=== PATIENT | male | born 2000 | race African-American/Black ===

== ENCOUNTER 2020-06-09 13:42 | Emergency (ER) | payer MEDICAID, OTHER ==
[~2020-06-09] VITALS: Ht 182.9 cm; Wt 72.6 kg
[2020-06-09] MEDS ORDERED: SODIUM CHLORIDE 0.9% 1,000 ML IV ONE ×2 (13:48)
[2020-06-09 14:17] LABS: Basophils # (auto) 0 10 ^3/uL (0-0.2); Basophils % (auto) 1.5 % (0.0-2.0); Eosinophils # (auto) 0 10 ^3/uL (0-0.8); Eosinophils % (auto) 1.5 % (0.0-7.0); Hematocrit 44.3 % (41.0-53.0); Lymphocytes # (auto) 1.5 10 ^3/uL (0.4-5.4); Lymphocytes % (auto) 50.8 % (10.0-50.0); Mean Corpuscular Hemoglobin 28.5 pg (28.0-32.0); Mean Corpuscular Hgb Conc. 33.9 g/dL (32.0-36.0); Mean Corpuscular Volume 84.2 fL (80.0-100.0); Monocytes # (auto) 0.3 10 ^3/uL (0-1.3); Monocytes % (auto) 11.4 % (0.0-12.0); Neutrophils % (auto) 34.8 % (37.0-80.0); Nucleated Red Blood Cells % 0.1 %; Platelet Count (auto) 227 10^3/uL (140-450); Red Blood Cells 5.26 10^6/uL (4.5-5.90); Red Cell Distribution Width 13.8 % (11.8-14.3); White Blood Cell 2.9 10^3/uL (4.4-10.8)
[2020-06-09 14:40] LABS: Alanine Aminotransferase 19 U/L (16-61); Albumin 4.1 g/dL (3.4-5.0); Anion Gap 6 (5-15); Aspartate Aminotransferase 20 U/L (15-37); BUN/Creatinine Ratio 13.8; Blood Alcohol < 3.0 mg/dL (0-5); Blood Urea Nitrogen 13 mg/dL (7-18); Calcium 8.8 mg/dL (8.5-10.1); Carbon Dioxide 25 mmol/L (21-32); Chloride 108 mmol/L (98-107); GFR African American 132 mL/min; GFR Non-African American 109 mL/min; Glucose 93 mg/dL (74-106); Potassium 3.8 mmol/L (3.5-5.1); Sodium 139 mmol/L (136-145)
[2020-06-09 14:42] LABS: Salicylate 2.1 mg/dL (2.8-20.0)
[2020-06-09 14:44] LABS: Acetaminophen < 2.0 ug/mL (10-30)
[2020-06-09 14:45] LABS: Alkaline Phosphatase 71 U/L (45-117); Bilirubin, Total 0.3 mg/dL (0.2-1.0); Total Protein 8.1 g/dL (6.4-8.2)
[2020-06-09 15:48] LABS: Urine WBC None Seen /hpf (0 - 3)
[2020-06-09 16:11] LABS: Urine Bacteria NONE SEEN /hpf (None Seen); Urine Blood Negative /uL (Negative); Urine Mucus FEW (None Seen); Urine Specific Gravity 1.023 (1.001-1.035)
[2020-06-09 16:20] LABS: Alcohol, Urine < 3.0 mg/dL (0-10); Amphetamine Screen, Urine NEGATIVE (NEGATIVE); Barbiturate Scree,Urine NEGATIVE (NEGATIVE); Benzodiazephine Screen, Urine NEGATIVE (NEGATIVE); Cannabinoid Screen, Urine POSITIVE (NEGATIVE); Cocaine Screen, Urine NEGATIVE (NEGATIVE); Opiate Scree,Urine NEGATIVE (NEGATIVE); Phencyclidine Screen, Urine NEGATIVE (NEGATIVE)
[2020-06-09 18:16] VITALS: BP 109/54
== END 2020-06-09 18:22 | disposition home or self-care (01) ==
LOC: ER 13:42
DX: T50.991A Poisoning by other drugs, medicaments and biological substances, accidental (unintentional), initial encounter (principal); E86.0 Dehydration; R51 Headache; R29.6 Repeated falls; Y92.89 Other specified places as the place of occurrence of the external cause
CPT/HCPCS: 36415; 71045; 80053; 80307; 80320; 80329; 81001; 84484; 85025; 96360; 96361; 99285; J7030

== ENCOUNTER 2022-12-02 14:16 | Emergency (ER) | payer MEDICAID, OTHER ==
[~2022-12-02] VITALS: Ht 185.4 cm; Wt 86.5 kg
[2022-12-02 15:38] VITALS: BP 117/69
[2022-12-02] MEDS ORDERED: IBUPROFEN 800 MG TAB PO ONE (15:45)
[2022-12-02] MEDS ORDERED: IBUP800T27 PO (15:56)
== END 2022-12-02 16:02 | disposition home or self-care (01) ==
LOC: ER 14:16
DX: S62.336A Displaced fracture of neck of fifth metacarpal bone, right hand, initial encounter for closed fracture (principal); Z79.1 Long term (current) use of non-steroidal anti-inflammatories (NSAID); W22.01XA Walked into wall, initial encounter; Y93.89 Activity, other specified; Y92.89 Other specified places as the place of occurrence of the external cause; Y99.8 Other external cause status
CPT/HCPCS: 29125; 73130

== ENCOUNTER 2025-01-02 23:09 | Emergency (ER) | payer MEDICAID, OTHER ==
[~2025-01-02] VITALS: Ht 182.9 cm; Wt 92.3 kg
[~2025-01-02 23:09] MED LIST: IBUP-1456 PO
[2025-01-03 00:32] LABS: COVID19 ANTIGEN SOFIA FIA NEGATIVE (NEGATIVE); Rapid Influenza A Negative (Negative); Rapid Influenza B Negative (Negative)
[2025-01-03 02:42] VITALS: BP 126/70; PULSE 90; RESP 18; TEMP 98.8; O2SAT 99
--- NOTE | 2025-01-03 03:24 | ED.PDOC ---
Back pain HPI HPI Comments PT PRESENTED TO ED FOR FLU-LIKE S/S: PRODUCTIVE COUGH, CONGESTION, HEADACHE, DIZZINESS AFTER TAKING TAMIFLU MEDICATION THAT WAS PRESCRIBED X1 WEEK AGO FOR POSITIVE FLU RESULTS. GCS-15, ALL VSS. DENIES WORST HEADACHE OF HIS LIFE, INJURY, DENIES NAUSEA AND VOMITING VISION CHANGES. Chief Complaint: Flu like Time Seen by MD: 23:47 Primary Care Provider: JAISON Kramer Notes: Nurses Notes, Medications, Allergies Allergies: Coded Allergies: No Known Drug Allergy (Verified Allergy, Unknown, 04/09/22) Home Meds Active Scripts Ibuprofen (Ibuprofen) 800 Mg Tab, 1 TAB PO TID, #30 TAB Prov:YOBANYSABINA HERNANDEZ 12/02/22 Information Source: Patient Mode of Arrival: Ambulatory Past Medical History PAST MEDICAL HISTORY: Denies Surgical History: Denies all surgeries Family History Family History: Reviewed,noncontributory to illness Social History Smoker: Non-Smoker Alcohol: Denies ETOH Use Drugs: Denies Drug Use Lives In: Home Constitutional: reports: fever; denies: chills, diaphoresis, fatigue, malaise, sweats, weakness, others EENTM: reports: blurred vision; denies: double vision, ear bleeding, ear discharge, ear drainage, ear pain, ear ringing, eye pain, eye redness, hearing loss, mouth pain, mouth swelling, nasal discharge, nose bleeding, nose congestion, nose pain, photophobia, tearing, throat pain, throat swelling, voice changes, others Respiratory: reports: cough; denies: hemoptysis, orthopnea, SOB at rest, shortness of breath, SOB with excertion, stridor, wheezing, others Cardiovascular: denies: chest pain, dizzy spells, diaphoresis, Dyspnea on exertion, edema, irregular heart beat, left arm pain, lightheadedness, palpitations, PND, syncope, others Gastrointestinal: denies: abdomen distended, abdominal pain, blood streaked bowels, constipated, diarrhea, dysphagia, difficulty swallowing, hematemesis, melena, nausea, poor appetite, poor fluid intake, rectal bleeding, rectal pain, vomiting, others Genitourinary: denies: burning, dysuria, flank pain, frequency, hematuria, incontinence, penile discharge, penile sore, pain, testicle pain, testicle swelling, urgency, others Neurological: reports: dizziness, headache; denies: fainting, left sided numbness, left sided weakness, numbness, paresthesia, pre-existing deficit, righ t sided numbness, right sided weakness, seizure, speech problems, tingling, tremors, weakness, others Musculoskeletal: denies: back pain, gout, joint pain, joint swelling, muscle pain, muscle stiffness, neck pain, others Integumetry: denies: bruises, change in color, change in hair/nails, dryness, laceration, lesions, lumps, rash, wounds, others Allergic/Immunocompromised: denies: Difficulty Healing, Frequent Infections, Hives, Itching, others Hematologic/Lymphatic: denies: anemia, blood clots, easy bleeding, easy bruising, swollen glands, others Endocrine: denies: excessive hunger, excessive sweating, excessive thirst, excessive urination, flushing, intolerance to cold, intolerance to heat, unexplained weight gain, unexplained weight loss, others Psychiatric: denies: anxiety, bipolar disorder, depression, hopeless, panic disorder, schizophrenia, sleepless, suicidal, others Physical Exam General Appearance: No Apparent Distress, Normal HEENT: Pharynx Normal Neck: Full Range of Motion, Non-Tender Respiratory: Lungs Clear, No Respiratory Distress, Normal Breath Sounds Cardiovascular: No Edema, No JVD, No Murmur, No Gallop, Normal Peripheral Pulses, Regular Rate/Rhythm Breast Exam: Deferred Gastrointestinal: No Organomegaly, Non Tender, No Pulsatile Mass, Normal Bowel Sounds, Soft Genitalia: Deferred Pelvic: Deferred Rectal: Deferred Extremities: Normal capillary refill, Normal inspection, Normal range of motion, Non-tender, No pedal edema Musculoskeletal : Apperance: Normal Neurologic: Alert, barrel ribs solderer II-XII nml as Tested, No Motor Deficits, Normal Affect, Normal Mood, No Sensory Deficits Cerebellar Function: Normal Reflexes: Normal Skin: Dry, Normal Color, Warm Lymphatic: No Adenopathy Was a procedure done? Was a procedure done?: No Back Pain Differential Dx Differential Diagnosis: Musculoskeletal Pain X-Ray, Labs, Meds, VS Vital Signs Date Time Temp Pulse Resp B/P (MAP) Pulse Ox O2 Delivery O2 Flow Rate FiO2 01/03/25 02:42 90 01/03/25 02:42 98.8 90 18 126/70 (88) 99 98.8 3/26/25 23:33 98.8 90 18 126/70 (88) 99 98.8 Lab Test 01/02/25 23:50 01/02/25 23:17 Range/Units Influenza Type A Antigen Negative Negative Influenza Type B Antigen Negative Negative SARS-CoV-2 Antigen (Rapid) Negative NEGATIVE POC Glucose 106 70-106 mg/dl X-Ray, Labs, Meds, VS Comment INFLUENZA SWAB AND COVID-19 SWABS ARE NEGATIVE. RELATED TO CERVICAL NECK SPASMS. RECOMMENDED A PRESCRIPTION OF MUSCLE RELAXER. ALSO RECOMMENDED T ORADOL INJECTION 60 MG OR NORCO P.O. FOR HIS PAIN. PATIENT WAS FAST ASLEEP ON THE COUCH WHEN I ARRIVED FURTHER PHYSICAL EXAM. VERY HOSTILE AND GOT UP YELLING HE IS GOING TO [place] AND HE WANTS A HEAD CT. PT WAS GIVEN VERBAL DISCHARGE INSTRUCTIONS REFUSED TO SIGN DISCHARGE INSTRUCTIONS WAS ESCORTED TO THE MAIN LOBBY BY SECURITY DUE TO AND BECOMING HOSTILE AND YELLING. NEURO EXAM WAS GROSSLY BENIGN. WAS ADVISED TO FOLLOW UP WITH HIS PCP IN 1-2 DAYS AND WE DID DISCUSS ER RETURN PRECAUTIONS HE DID INDICATE UNDERSTANDING. Time of 1ST Reevaluation: 03:20 Reevaluation 1ST: Improved Patient Education/Counseling: Diagnosis, Treatment, Prognosis, Need For Follow Up Family Education/Counseling: No Family Present Departure 1 Departure Time of Disposition: 03:20 Impression: Primary Impression: Spasm of cervical paraspinous muscle Disposition: 01 HOME / SELF CARE / HOMELESS Condition: Stable Discharged With: Self Critical Care Note Critical Care Time?: No Stability Stability form required: JESE Vega Jan 03, 2025 03:24
== END 2025-01-03 03:10 | disposition home or self-care (01) ==
LOC: ER 23:09
DX: M62.838 Other muscle spasm (principal); R51.9 Headache, unspecified; R42 Dizziness and giddiness; R05.9 Cough, unspecified; Z79.1 Long term (current) use of non-steroidal anti-inflammatories (NSAID); Z20.822 Contact with and (suspected) exposure to COVID-19
CPT/HCPCS: 36415; 82947; 82962; 87426; 87804

== ENCOUNTER 2025-09-17 18:04 | Emergency (ER) | payer MEDICAID ==
[~2025-09-17] VITALS: Ht 185.4 cm; Wt 84.0 kg
[2025-09-17 18:08] VITALS: TEMP 98
--- NOTE | 2025-09-17 19:03 | DVH ---
XY CHEST TWO VIEWS ROUTINE CLINICAL HISTORY: cough COMPARISON: XR CHEST 2 VIEWS on DOS: 12/27/24 TECHNIQUE: Frontal and lateral view of the chest was obtained FINDINGS: Lines and Tubes: None Lungs: Airspace disease is noted in the left lower lobe. Recommend follow-up study after appropriate clinical therapy to ensure resolution. Pleura: No effusion. No pneumothorax. Cardiomediastinal contours: Unremarkable Bones: No acute osseous abnormality. IMPRESSION: 1. Left lower lobe airspace disease consistent with pneumonia. 2. Recommend follow-up study after appropriate clinical therapy to verify resolution.
[2025-09-17 21:37] LABS: Hematocrit 43.7 % (41.0-53.0); Hemoglobin 14.5 g/dL (13.5-17.5); Mean Corpuscular Hemoglobin 27.7 pg (28.0-32.0); Mean Corpuscular Volume 83.5 fL (80.0-100.0); Nucleated Red Blood Cells % 0.1 %
[2025-09-17 23:41] VITALS: BP 119/74; PULSE 79; RESP 20; O2SAT 95
--- NOTE | 2025-09-17 23:43 | ED.PDOC ---
SOB-HPI HPI Comments 25-year-old male presents to ER with complaints of cough x8 days. Patient reports he has been experiencing productive cough with green phlegm and congestion x8 days. Denies use of medications for current symptoms denies any pain. Patient presents to ER ambulatory on arrival, with steady gait, in no distress with vitals stable. Denies fever, body aches, chills, night sweats, shortness of breath, fatigue, nausea/vomiting, headache, chest pain, hemoptysis or any further symptoms/complaints Chief Complaint: Cough Time Seen by MD: 18:20 Primary Care Provider: JAISON Kramer notes: Nurses Notes, Medications, Allergies Information Source: Patient Mode of Arrival: Ambulatory Past Medical History PAST MEDICAL HISTORY: Denies Surgical History: Denies all surgeries Family History Family History: Unknown Social History Smoker: Non-Smoker Alcohol: Denies ETOH Use Drugs: Denies Drug Use Lives In: Home Constitutional: denies: chills, diaphoresis, fatigue, fever, malaise, sweats, weakness, others EENTM: reports: others (As stated in HPI) Respiratory: reports: others (As stated in HPI) Cardiovascular: denies: chest pain, dizzy spells, diaphoresis, Dyspnea on exertion, edema, irregular heart beat, left arm pain, lightheadedness, palpitations, PND, syncope, others Gastrointestinal: denies: abdomen distended, abdominal pain, blood streaked bowels, constipated, diarrhea, dysphagia, difficulty swallowing, hematemesis, melena, nausea, poor appetite, poor fluid intake, rectal bleeding, rectal pain, vomiting, others Genitourinary: denies: burning, dysuria, flank pain, frequency, hematuria, incontinence, penile discharge, penile sore, pain, testicle pain, testicle swelling, urgency, others Neurological: denies: dizziness, fainting, headache, left sided numbness, left sided weakness, numbness, paresthesia, pre-existing deficit, right sided numbness, right sided weakness, seizure, speech problems, tingling, tremors, weakness, others Musculoskeletal: denies: back pain, gout, joint pain, joint swelling, muscle pain, muscle stiffness, neck pain, others Integumetry: denies: bruises, change in color, change in hair/nails, dryness, laceration, lesions, lumps, rash, wounds, others Allergic/Immunocompromised: denies: Difficulty Healing, Frequent Infections, Hives, Itching, others Hematologic/Lymphatic: denies: anemia, blood clots, easy bleeding, easy bruising, swollen glands, others Endocrine: denies: excessive hunger, excessive sweating, excessive thirst, excessive urination, flushing, intolerance to cold, intolerance to heat, unexplained weight gain, unexplained weight loss, others Psychiatric: denies: anxiety, bipolar disorder, depression, hopeless, panic disorder, schizophrenia, sleepless, suicidal, others Physical Exam General Appearance: No Apparent Distress, Normal HEENT: Normal ENT Inspection, PERRL/EOMI, Pharynx Normal, TMs Normal Neck: Full Range of Motion, Non-Tender, Normal Respiratory: Chest Non-Tender, Decreased Breath Sounds (Left lower lung ortega), Lungs Clear, No Accessory Muscle Use, No Respiratory Distress Cardiovascular: No Murmur, No Gallop, Regular Rate/Rhythm Breast Exam: Deferred Gastrointestinal: NOT DONE Genitalia: Deferred Pelvic: Deferred Rectal: Deferred Extremities: Normal capillary refill, Normal range of motion Neurologic: Alert, No Motor Deficits, Normal Affect, Normal Mood, No Sensory Deficits Cerebellar Function: Normal Reflexes: Normal Skin: Dry, Normal Color, Warm Peripheral Pulses: 2+ Radial (R), 2+ Radial (L), 2+ Brachial (R), 2+ Brachial (L) Lymphatic: No Adenopathy Was a procedure done? Was a procedure done?: No Sedation Sedation?: No Differential Dx Differential Diagnosis: Pneumothorax, Pulmonary Embolism, Respiratory Distress, Pharyngitis, URI X-Ray, Labs, Meds, VS Vital Signs Date Time Temp Pulse Resp B/P (MAP) Pulse Ox O2 Delivery O2 Flow Rate FiO2 09/17/25 23:41 95 Room Air* 0 21 09/17/25 23:41 79 20 119/74 (89) 95 09/17/25 18:08 98.0 96 18 127/83 95 98.0 Lab Test 09/17/25 21:12 Range/Units White Blood Count 10.6 4.4-10.8 10^3/uL Red Blood Count 5.23 4.5-5.90 10^6/uL Hemoglobin 14.5 13.5-17.5 g/dL Hematocrit 43.7 41.0-53.0 % Mean Corpuscular Volume 83.5 80.0-100.0 fL Mean Corpuscular Hemoglobin 27.7 L 28.0-32.0 pg Mean Corpuscular Hemoglobin Concent 33.1 32.0-36.0 g/dL Red Cell Distribution Width 13.6 11.8-14.3 % Platelet Count 376 140-450 10^3/uL Mean Platelet Volume 7.3 6.9-10.8 fL Neutrophils (%) (Auto) 67.8 37.0-80.0 % Lymphocytes (%) (Auto) 20.0 10.0-50.0 % Monocytes (%) (Auto) 11.5 0.0-12.0 % Eosinophils (%) (Auto) 0.5 0.0-7.0 % Basophils (%) (Auto) 0.2 0.0-2.0 % Neutrophils # (Auto) 7.2 1.6-8.6 10 ^3/uL Lymphocytes # (Auto) 2.1 0.4-5.4 10 ^3/uL Monocytes # (Auto) 1.2 0-1.3 10 ^3/uL Eosinophils # (Auto) 0.1 0-0.8 10 ^3/uL Basophils # (Auto) 0 0-0.2 10 ^3/uL Nucleated Red Blood Cells 0.1 % PATIENT: SILAS RODRIGUESCCT: [id number]: [id number] : 2000 LOC: ER ROOM / BED: / AGE / SEX: 25 / M ADM STATUS: REG ER SERVICE 1820 ORDERING PHYSICIAN: ELISE LION PROCEDURE(s): CXR2 - CHEST TWO VIEWS ROUTINE REASON: cough ORDER NUMBER(s): [id number], ACCESSION NUMBER(s): [id number] XY CHEST TWO VIEWS ROUTINE CLINICAL HISTORY: cough COMPARISON: XR CHEST 2 VIEWS on DOS: 12/27/24 TECHNIQUE: Frontal and lateral view of the chest was obtained FINDINGS: Lines and Tubes: None Lungs: Airspace disease is noted in the left lower lobe. Recommend follow-up study after appropriate clinical therapy to ensure resolution. Pleura: No effusion. No pneumothorax. Cardiomediastinal contours: Unremarkable Bones: No acute osseous abnormality. IMPRESSION: 1. Left lower lobe airspace disease consistent with pneumonia. 2. Recommend follow-up study after appropriate clinical therapy to verify resolution. ATED BY: LOIDA TOBAR Jr., DO DICTATED DATE/TIME: 09/17/251900 SIGNED BY: LOIDA TOBAR Jr., DO SIGNED DATE/TIME: 09/17/251900 CC: Chest x-ray reviewed CBC reviewed without any significant abnormalities Rocephin 1 g IM ordered Patient well appearing, vitals stable and in no distress during ER visit/prior to discharge Advised to drink plenty of fluids Advised on repeat chest x-ray in one week Advised to follow up with PCP in 1-2 days Patient verbalized understanding and agreeable with current plan of care Advised to return to ER immediately if symptoms worsen Images Reviewed?: Images reviewed and evaluated by me Time of 1ST Reevaluation: 23:20 Reevaluation 1ST: N/A Patient Education/Counseling: Diagnosis, Treatment, Prognosis, Need For Follow Up Family Education/Counseling: No Family Present SEPSIS Sepsis Screen Date sepsis recognized/suspect: Sep 17, 2025 Time Sepsis recognized/suspect: 1808 Recent Procedure: No On Antibiotic Therapy: No Respiratory Rate >20: No Heart Rate >90: Yes Temp<36 C (96.8 F) or >38.3 C: No SBP <90 or MAP <65 mmHG: No New Acute Mental Status Change: No Is the patient on CPAP, BIPAP,: No Physician Orders Chest Two Views Routine (09/17/25 18:20) Ceftriaxone Sodium (Rocephin) (09/17/25 23:45) Lidocaine 1% (Local Anesth.) (Xylocaine (09/17/25 23:45) Vital Signs Date Time Temp Pulse Resp B/P (MAP) Pulse Ox O2 Delivery O2 Flow Rate FiO2 09/17/25 23:41 95 Room Air* 0 21 09/17/25 23:41 79 20 119/74 (89) 95 09/17/25 18:08 98.0 96 18 127/83 95 98.0 Laboratory Tests Test 09/17/25 21:12 White Blood Count 10.6 10^3/uL (4.4-10.8) Departure 1 Departure Time of Disposition: 23:43 Impression: Primary Impression: Left lower lobe pneumonia Qualified Codes: J18.9 - Pneumonia, unspecified organism Disposition: 01 HOME / SELF CARE / HOMELESS Condition: Stable e-Prescriptions Albuterol Sulfate (VENTOLIN MDI) 90 Mcg Ih 2 PUFF IN Q6HPRN, #1 INH 0 Refills Prov: ELISE LION 09/17/25 Prednisone (Prednisone) 20 Mg Tab 20 MG PO BID for 5 Days, #10 TAB 0 Refills Prov: ELISE LION 09/17/25 Azithromycin (Azithromycin) 250 Mg Tab 250 MG PO DAILY MDD 500 for 5 Days, #6 TAB 0 Refills 2 TABLETS ORALLY ON DAY ONE, THEN 1 TABLET ORALLY DAILY FOR 4 DAYS Prov: ELISE LION 09/17/25 Discharged With: Self Critical Care Note Critical Care Time?: No Stability Stability form required: No Heart Score Heart Score: Heart Score Response (Comments) Value History N/A 0 EKG N/A 0 Age N/A 0 Risk Factors N/A 0 Troponin N/A 0 Total 0 LEISE LION Sep 17, 2025 23:43
[2025-09-17] MEDS ORDERED: ALBUAER3 IN (23:45)
[2025-09-17] MEDS ORDERED: PRED20TA2 PO (23:45)
[2025-09-17] MEDS ORDERED: AZIT-43 PO (23:45)
[2025-09-17] MEDS: LIDOCAINE 1% HCL (LOCAL ANESTH.) INJ 20ML MDV ID ONE (23:47)
[2025-09-17] MEDS: LIDOCAINE 1% HCL (LOCAL ANESTH.) INJ 20ML MDV ONE (23:47)
[2025-09-17] MEDS: cefTRIAXone SOD 1,000 MG VL IM ONE (23:55)
== END 2025-09-17 23:59 | disposition home or self-care (01) ==
LOC: ER 18:04
DX: J18.9 Pneumonia, unspecified organism (principal)
CPT/HCPCS: 36415; 71046; 85025; 96372; 99284; J0696; J2003